=== PATIENT | male | born 1965 | race Caucasian/White ===

== ENCOUNTER 2018-02-16 18:31 | Emergency (ER) | payer BC ==
[~2018-02-16] VITALS: Ht 195.6 cm; Wt 92.9 kg
[2018-02-16 18:34] VITALS: BP 132/104
[2018-02-16] MEDS ORDERED: NORCO 5/3251 TABLET PO (20:49)
== END 2018-02-16 21:08 | disposition home or self-care (01) ==
LOC: EME 18:31
DX: S20.219A Contusion of unspecified front wall of thorax, initial encounter (principal); W01.0XXA Fall on same level from slipping, tripping and stumbling without subsequent striking against object, initial encounter; F17.200 Nicotine dependence, unspecified, uncomplicated
CPT/HCPCS: 71101; 99281; 99283; J1885